=== PATIENT | female | born 1990 | race Caucasian/White ===

== ENCOUNTER 2021-05-20 07:30 | Inpatient (IN) | payer OTHER ==
[2021-05-20] MEDS ORDERED: OXYTOCIN 20 UNITS in 0.9% NS 40 UNIT/2,000 ML INFUS.BAG IV ONE (09:52)
[2021-05-20 09:56] VITALS: BMI 27.3
[2021-05-20] MEDS ORDERED: morphine SULFATE/PF 0.5 MG/ML (2cc Syringe - QUVA) ONE (09:59)
[2021-05-20] MEDS ORDERED: ELECTROLYTE-148 SOLN 500 ML IV ONE (09:59)
[2021-05-20] MEDS ORDERED: CITRIC ACID/SODIUM CITRATE 30 ML UNIT-DOSE CUP PO ONE (09:59)
[2021-05-20] MEDS ORDERED: ELECTROLYTE-148 SOLN 1,000 ML IV SCH (10:00)
[2021-05-20] MEDS ORDERED: ceFAZolin SODIUM 1 GM VIAL ONE (10:13)
[2021-05-20] MEDS ORDERED: KETOROLAC TROMETHAMINE 30 MG/1 ML VIAL ONE (11:05)
[2021-05-20] MEDS ORDERED: ONDANSETRON 4 MG/2 ML VIAL ONE (11:05)
[2021-05-20] MEDS ORDERED: GLYCOPYRROLATE 0.2 MG/1 ML VIAL ONE (11:05)
[2021-05-20] MEDS ORDERED: DEXAMETHASONE SOD PHOSPHATE 4 MG/1 ML VIAL ONE (11:05)
[2021-05-20] MEDS ORDERED: morphine SULFATE/PF 0.5 MG/ML (2cc Syringe - QUVA) EP ONE (11:09)
[2021-05-20] MEDS ORDERED: ONDANSETRON 4 MG/2 ML VIAL IVPUSH PRN (11:09)
[2021-05-20 11:37] LABS: CORD PCO2 56.1 mmHg (30-78)
[2021-05-20 11:37] LABS: CORD BASE EXCESS -2.6 mmol/L (0-2); CORD HCO3 23.5 mmHg (20-29); CORD PCO2 45.2 mmHg (30-78); CORD pH 7.333 (7.14-7.44)
[2021-05-20] MEDS ORDERED: oxyCODONE HCL 5 MG TABLET PO PRN (11:56)
[2021-05-20] MEDS ORDERED: METHYLERGONOVINE MALEATE 0.2 MG/1 ML AMP IM PRN (11:56)
[2021-05-20] MEDS ORDERED: BENZOCAINE 28 GM HEMORRHOIDAL OINTMENT TP PRN (11:56)
[2021-05-20] MEDS ORDERED: IBUPROFEN 800 MG/8 ML IJ IVPB PRN (11:56)
[2021-05-20] MEDS ORDERED: IBUPROFEN 600 MG TABLET (FP) PO PRN (11:56)
[2021-05-20] MEDS ORDERED: WITCH HAZEL 50% (TUCKS) 40 PAD/JAR PAD TP PRN (11:56)
[2021-05-20] MEDS ORDERED: BENZOCAINE 20% 57 GM BOTTLE TP PRN (11:56)
[2021-05-20] MEDS ORDERED: OXYTOCIN 20 UNITS in 0.9% NS 20 UNIT/1,000 ML INFUS.BAG IV SCH (12:00)
[2021-05-20] MEDS: ACETAMINOPHEN 325 MG TABLET (FP) PO PRN (22:05)
[2021-05-21] MEDS: IBUPROFEN 600 MG TABLET (FP) PO PRN ×3 (02:19→21:04)
[2021-05-21] MEDS: ACETAMINOPHEN 325 MG TABLET (FP) PO PRN ×4 (02:19→21:03)
[2021-05-21 08:24] LABS: BASO % 0.3 % (0-2.0); EOS % 0.4 % (0-4.5); HEMATOCRIT 38.6 % (32.4-45.2); HEMOGLOBIN 13.8 GM/dL (10.7-15.3); LYMPH % 17.7 % (8-40); MCH 34.6 pg (25.7-33.7); MCHC 35.6 g/dl (32.0-36.0); MEAN CELL VOLUME 97.1 fl (80-96); MEAN PLT VOLUME 7.9 fl (7.5-11.1); NEUT % 75.6 % (42.8-82.8); PLATELET COUNT 264 10^3/uL (134-434); RBC 3.98 M/mm3 (3.60-5.2); RDW 12.6 % (11.6-15.6); WHITE BLOOD COUNT 12.7 K/mm3 (4.0-10.0)
[2021-05-21] MEDS: PRENATAL VITAMINS W/ FOLIC ACID TABLET (FP) PO SCH (09:20)
[2021-05-21] MEDS: ENOXAPARIN NA (PORCINE) 40 MG/0.4 ML DISP.SYRIN SQ SCH (09:20)
[2021-05-21] MEDS ORDERED: BISACODYL 10 MG SUPP.RECT RC PRN (11:56)
[2021-05-21] MEDS: SIMETHICONE 80 MG TAB.CHEW (FP) PO PRN (14:43)
[2021-05-22] MEDS: IBUPROFEN 600 MG TABLET (FP) PO PRN ×2 (02:17→09:28)
[2021-05-22] MEDS: ACETAMINOPHEN 325 MG TABLET (FP) PO PRN ×2 (02:17→09:29)
[2021-05-22] MEDS: SIMETHICONE 80 MG TAB.CHEW (FP) PO PRN (09:28)
[2021-05-22] MEDS: ENOXAPARIN NA (PORCINE) 40 MG/0.4 ML DISP.SYRIN SQ SCH (09:28)
[2021-05-22] MEDS: PRENATAL VITAMINS W/ FOLIC ACID TABLET (FP) PO SCH (09:28)
[2021-05-22 10:32] VITALS: BP 104/66; PULSE 92; TEMP 98.5
== END 2021-05-22 11:15 | disposition home or self-care (01) | DRG 540 ==
LOC: JLDR 07:30 → J3W 13:10
PROVIDERS: ADMIT Obstetrics & Gynecology; ATTEND Obstetrics & Gynecology
PROC: 10D00Z1 Extraction of Products of Conception, Low, Open Approach (ICD-10-PCS; principal; 2021-05-20)
DX: O34.211 Maternal care for low transverse scar from previous cesarean delivery (principal); O42.90 Premature rupture of membranes, unspecified as to length of time between rupture and onset of labor, unspecified weeks of gestation; Z3A.38 38 weeks gestation of pregnancy; Z37.0 Single live birth
CPT/HCPCS: 36415; 36600; 80053; 82803; 85025; 85610; 85730; 86780; 86850; 86900; 86901; 88307-TC; C9803; U0003; U0005